=== PATIENT | female | born 1960 | race Caucasian/White ===

== ENCOUNTER 2023-07-13 12:53 | Outpatient (CLI) | payer MEDICAID, SELFPAY ==
--- NOTE | ~2023-07-13 | MR_ITS ---
EXAMINATION: MR knee RT wo con DATE: 07/13/2023 13:47 INDICATION: Acute onset right knee pain TECHNIQUE: Magnetic resonance imaging (MRI) of the right knee was performed without intravenous contr ast. Sequences included coronal PD-weighted FSE, coronal PD-weighted FS FSE, sagittal T2-weighted FS E, sagittal PD-weighted FS FSE and axial PD weighted fat saturated FSE. COMPARISON: None. FINDINGS: Medial compartment: Medial meniscus is normal. Partial-thickness chondral ulceration with chondral surface regularity and without degenerative subchondral changes along the anterior to central weightbearing medial femoral condyle. Partial-thickness cartilage loss with smooth chondral surface along the posterior and medial margins of the medial tibial plateau. Moderate size marginal osteophytes are present. Lateral compartment: Complex tear of the anterior horn and anterior body of the lateral meniscus. Partial-thickness chondr al ulceration without degenerative subchondral changes at the anterior to central weightbearing later al femoral condyle. There is a delaminating chondral flap tear extending posteriorly from the junctio n of the central to posterior weightbearing medial femoral condyle. The linear fluid signal deep to t he nondisplaced chondral flap extends approximate 8 mm medial to lateral and 10 mm anteroposteriorly. Patellofemoral compartment: Extensive full and near full-thickness chondral ulceration involving the lateral patellar facet and m uch of the lateral trochlea. There is remodeling of both of the articular cortices and associated lar ge marginal osteophytes. Less severe partial thickness chondral ulceration at the trochlear groove an d medial trochlea. Prominent marginal osteophytes replacing much of the cartilage at the medial galvin lar facet. Ligaments and tendons: Anterior and posterior cruciate ligaments are normal. The medial collateral ligament and fibular john ateral ligament complex are normal. The extensor mechanism is normal. The visualized medial and later al hamstring tendons as well as the iliotibial band are normal. Fluid: Moderate-sized joint effusion at the suprapatellar pouch. 8 x 9 x 4 mm loose osteochondral body at th e lateral gutter of the suprapatellar pouch. Large Cook's cyst extending 7.5 similar craniocaudally and measures up to 3.9 x 1.5 cm in maximal transaxial dimensions. There are couple additional small l oose bodies in the dependent aspect of the Cook's cyst. Osseous/other: There is lateral patellar subluxation and tilt. No fracture or pathologic marrow replacing process. IMPRESSION: 1. Complex tear of the anterior horn and anterior body of the lateral meniscus. 2. 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 2. Moderate-sized right knee joint effusion and large Cook's cyst. Reviewed, dictated and finalized at location A. IMPRESSION: 1. Complex tear of the anterior horn and anterior body of the lateral meniscus. 2. Tricompartmental osteoarthritis, advanced at the lateral side of the patello femoral compartment and mild but with extensive moderate grade chondromalacia a t the medial and lateral compartments. 2. Moderate-sized right knee joint effusion and large Cook's cyst.
== END 2023-07-13 12:54 | disposition home or self-care (01) ==
LOC: ANHIMG 12:55
PROVIDERS: PCP Nurse Practitioner Family; Visit Provider Nurse Practitioner Family
DX: M17.11 Unilateral primary osteoarthritis, right knee (principal); M25.461 Effusion, right knee; S83.271A Complex tear of lateral meniscus, current injury, right knee, initial encounter; X58.XXXA Exposure to other specified factors, initial encounter
CPT/HCPCS: 73721